=== PATIENT | female | born 1950 | race Two or more races ===

== ENCOUNTER 2017-04-16 17:11 | Emergency (ER) | payer MEDICARE, OTHER ==
[2017-04-16] MEDS ORDERED: ACETAMINOPHEN TAB 500 MG TAB PO STA (17:39)
--- NOTE | 2017-04-16 17:42 | ED ---
General Adult HPI - General Chief complaint: Extremity Problem,Nontraumatic Stated complaint: burst vein in leg Time Seen by Provider: 04/16/17 17:33 Source: patient, RN notes reviewed Mode of arrival: ambulatory Limitations: language barrier - History of Present Illness Initial comments: Patient's an 67-year-old female who presents emergency room today with a chief complaint of increased pain some swelling to the left calf. Patient does speak little [place]ic and history is translated through her daughter at bedside. Patient does admit that she was washing her grandchildren yesterday. She does admit to remember hitting the left leg. Patient was met that she had some increased swelling locally around the area. She does move to history of varicose veins. Unsure if this was related. She states she seen some increased redness today. She states the pain is somewhat better today did take an aspirin for the pain. Has not had anything else. Denies any other questions or symptoms. - Related Data Home Medications Medication Instructions Recorded Confirmed Lisinopril [Prinivil] 10 mg PO DAILY 04/16/17 04/16/17 Pregabalin [Lyrica] 50 mg PO BID PRN 04/16/17 04/16/17 Allergies Allergy/AdvReac Type Severity Reaction Status Date / Time No Known Allergies Allergy Verified 04/16/17 18:36 Review of Systems ROS Statement: Those systems with pertinent positive or pertinent negative responses have been documented in the HPI. ROS Other: All systems not noted in ROS Statement are negative. Past Medical History Past Medical History: Hypertension Additional Past Medical History / Comment(s): restless leg syndrome History of Any Multi-Drug Resistant Organisms: None Reported Past Surgical History: No Surgical Hx Reported Past Psychological History: No Psychological Hx Reported Smoking Status: Never smoker Past Alcohol Use History: None Reported Past Drug Use History: None Reported General Exam - General Exam Comments Initial Comments: General: The patient is awake and alert, in no distress, and does not appear acutely ill. Neck: The neck is supple, there is no tenderness or JVD. Cardiovascular: There is a regular rate and rhythm. No murmur, rub or gallop is appreciated. Respiratory: Lungs are clear to auscultation, respirations are non-labored, breath sounds are equal. No wheezes, stridor, rales, or rhonchi. Musculoskeletal/skin: Patient does have some redness and swelling locally to the medial aspect of the left Calf. There is varicose vein locally present. There is local warmth. Mild tenderness on palpation. Patient does have good range motion. No bony tenderness on exam. Pulses equal bilaterally 2+ Neurological: A&O x 3. CN II-XII intact, There are no obvious motor or sensory deficits. Coordination appears grossly intact. Speech is normal. Limitations: language barrier Course Vital Signs 04/16/17 17:23 Temperature 98.8 F Pulse Rate 88 Respiratory 16 Rate Blood Pressure 132/78 O2 Sat by Pulse 97 Oximetry Medical Decision Making - Medical Decision Making Patient's a US is negative for any evidence of a DVT. Results were discussed with patient. Advised to use warm compresses to the affected area. Advised return if any symptoms increase worsen. Disposition Clinical Impression: Thrombophlebitis leg Disposition: HOME SELF-CARE Condition: Good Instructions: Superficial Thrombophlebitis (ED) Additional Instructions: Please use medication as discussed. Please follow-up with family doctor in the next 2 days of symptoms have not improved. Please return to emergency room if the symptoms increase or worsen or for any other concerns. Referrals: Robert Palacios MD [Primary Care Provider] - 1-2 days Time of Disposition: 18:58
--- NOTE | 2017-04-16 18:51 | US ---
EXAMINATION TYPE: US venous doppler duplex LE LT DATE OF EXAM: 04/16/2017 5:42 PM COMPARISON: NONE CLINICAL HISTORY: Pain. Patient states she bumped her leg and there is a bruise. Not on blood thinne rs. No hx of blood clots. SIDE PERFORMED: Left TECHNIQUE: The lower extremity deep venous system is examined utilizing real time linear array sonog dwain with graded compression, doppler sonography and color-flow sonography. VESSELS IMAGED: External Iliac Vein (EIV) Common Femoral Vein Deep Femoral Vein Greater Saphenous Vein * Femoral Vein Popliteal Vein Small Saphenous Vein * Proximal Calf Veins (* superficial vessels) Grayscale, color doppler, spectral doppler imaging performed of the deep veins of the lower extremiti es. There is normal flow, compressibility, vascular waveforms. Left Leg: Negative for DVT IMPRESSION: No sonographic evidence of deep venous stenosis within the left lower extremity.
[2017-04-16 19:03] VITALS: BP 146/85; PULSE 76; RESP 20; TEMP 97.6
== END 2017-04-16 19:09 | disposition home or self-care (01) ==
LOC: EC 17:11
DX: I80.3 Phlebitis and thrombophlebitis of lower extremities, unspecified (principal); I83.92 Asymptomatic varicose veins of left lower extremity; I10 Essential (primary) hypertension; Z79.899 Other long term (current) drug therapy
CPT/HCPCS: 99283

== ENCOUNTER → 2022-09-27 | Outpatient (CLI) | payer MEDICARE, OTHER ==
--- NOTE | 2022-09-27 12:29 | XR ---
EXAMINATION TYPE: XR chest 2V DATE OF EXAM: 09/27/2022 COMPARISON: NONE HISTORY: Shortness of breath TECHNIQUE: Frontal and lateral views of the chest are obtained. FINDINGS: Scattered senescent parenchymal changes noted. Hyperinflation compatible with COPD. No evidence for infiltrate. No evidence for atelectasis. Heart size is stable. Mediastinal structures are stable and grossly unremarkable. No evidence for hilar prominence. Degenerative changes dorsal spine. IMPRESSION: 1. No evidence for acute pulmonary disease.
== END | disposition home or self-care (01) ==
LOC: RADXRMAIN 11:53
PROVIDERS: ATTEND Internal Medicine
DX: R06.02 Shortness of breath (principal); R63.4 Abnormal weight loss
CPT/HCPCS: 71046